=== PATIENT | male | born 1980 | race Caucasian/White ===

== ENCOUNTER 2022-04-22 08:34 | Outpatient (CLI) | payer OTHER | END 2022-04-22 08:52 | disposition home or self-care (01) | LOC: NUCLEAR 08:34 | PROVIDERS: ATTEND Internal Medicine Geriatric Medicine | DX: I11.9 Hypertensive heart disease without heart failure (principal) ==

== ENCOUNTER 2022-06-23 01:26 | Emergency (ER) | payer OTHER ==
[~2022-06-23] VITALS: Ht 188 cm; Wt 108.4 kg
[2022-06-23] MEDS ORDERED: AVAPRO150 MG PO (01:38)
[2022-06-23] MEDS ORDERED: TOPROL XL25 M1 PO (01:38)
== END 2022-06-23 11:54 | disposition home or self-care (01) ==
LOC: ER 01:26
DX: R10.31 Right lower quadrant pain (principal); K42.9 Umbilical hernia without obstruction or gangrene

== ENCOUNTER 2022-10-24 09:22 | Day surgery (SDC) | payer OTHER ==
[~2022-10-24] VITALS: Ht 188 cm; Wt 101.2 kg
[~2022-10-24 09:22] MED LIST: AVAPRO150 MG PO; TOPROL XL25 M1 PO
[2022-10-24] MEDS ORDERED: FAMOTIDINE40 MG (10:43)
[2022-10-24] MEDS ORDERED: PERCOCET 5-3251 EACH PO (14:11)
[2022-10-24] MEDS ORDERED: RECTICARE30 GM TOP (14:12)
== END 2022-10-24 17:55 | disposition home or self-care (01) ==
LOC: O/R 09:22 → SEC-K 09:22 → CIR.AMB 09:22 → ER 09:22 → CIR.AMB 09:22 → O/R 10:39 → SEC-K 10:39 → EDSTATUS 12:00 → CIR.AMB 17:55 → O/R 17:55
PROVIDERS: ATTEND General Practice
DX: K62.5 Hemorrhage of anus and rectum (principal); K60.2 Anal fissure, unspecified; K64.8 Other hemorrhoids; Z20.822 Contact with and (suspected) exposure to COVID-19